=== PATIENT | female | born 1965 | race Caucasian/White ===

== ENCOUNTER → 2018-11-27 | Outpatient (CLI) | payer OTHER ==
[~2018-11-27] MED LIST: Flagyl500 MG PO; HYDACE5325 PO; SULTRIDS PO; Zofran Odt4 MG SL
[2018-11-28 14:08] LABS: HPV 16 Negative (Negative); HPV 18 Negative (Negative); HPV OTHER HR TYPES Negative (Negative)
== END | disposition home or self-care (01) ==
LOC: LAB 12:42 → LAB SHORT 12:42
PROVIDERS: Nurse Practitioner Women's Health
DX: Z12.4 Encounter for screening for malignant neoplasm of cervix (principal); Z91.89 Other specified personal risk factors, not elsewhere classified
CPT/HCPCS: 87624; G0123

== ENCOUNTER 2019-04-03 08:59 | Day surgery (SDC) | payer OTHER ==
[~2019-04-03] VITALS: Ht 165.1 cm; Wt 68.0 kg
[~2019-04-03 08:59] MED LIST changes: +ACYC200 PO; +AMLO10 PO; +ASPI81CH PO; +ATOR20 PO; +BUPR150ER PO; +CLOP75 PO; +ESTROGEN PATCH; +LEVFLO500 PO; +LISI5 PO; +METO25ER PO; +PROG100 PO; +Prilosec Otc20 MG PO; +Vitamin D2000 UNIT PO
[2019-04-03] MEDS ORDERED: PANT40 PO (10:12)
[2019-04-03] MEDS ORDERED: Nicoderm Cq1 EAC1 TOP (10:13)
--- NOTE | 2019-04-03 11:19 | NUR ---
PT AND S/O VERBALIZES UNDERSTANDING WRITTEN AND VERBAL ORDERS. VSS. NADN PT IV DC'D, CATH INTACT. PRESSURE DSG IN PLACE. PT DC TO HOME VIA S/O BY WC
== END 2019-04-03 22:54 | disposition home or self-care (01) ==
LOC: MHTC 08:59
DX: I08.3 Combined rheumatic disorders of mitral, aortic and tricuspid valves (principal); I10 Essential (primary) hypertension; F41.9 Anxiety disorder, unspecified; F32.9 Major depressive disorder, single episode, unspecified; E78.5 Hyperlipidemia, unspecified; E66.9 Obesity, unspecified; Z88.5 Allergy status to narcotic agent; Z68.24 Body mass index [BMI] 24.0-24.9, adult
CPT/HCPCS: 93312; 93325; 99152; J2250; J3010; J7030; J7040

== ENCOUNTER 2020-10-31 09:52 | Inpatient (IN) | payer SELFPAY ==
[~2020-10-31] VITALS: Ht 149.9 cm; Wt 69.7 kg
[~2020-10-31 09:52] MED LIST changes: +Nicoderm Cq1 EAC1 TOP; +PANT40 PO
[2020-10-31 10:17] LABS: BASOPHILS ABSOLUTE AUTO 0.11 K/mm3 (0.00-0.23); BASOPHILS PERCENT AUTO 1 % (0-2); EOSINOPHILS ABSOLUTE AUTO 0.55 K/mm3 (0.00-0.68); EOSINOPHILS PERCENT AUTO 4 % (0-6); Hematocrit 45.8 % (33.0-51.0); Hemoglobin 15.6 g/dL (11.5-16.0); IMMATURE GRAN ABSOLUTE AUTO 0.06 K/mm3 (0.00-0.10); IMMATURE GRAN PERCENT AUTO 0 % (0-1); LYMPHOCYTES ABSOLUTE AUTO 3.74 K/mm3 (0.84-5.20); LYMPHOCYTES PERCENT AUTO 28 % (21-46); MONOCYTES ABSOLUTE AUTO 1.23 K/mm3 (0.16-1.47); MONOCYTES PERCENT AUTO 9 % (4-13); Mean Corpuscular HGB 33.8 pg (26.0-34.0); Mean Corpuscular HGB Conc 34.1 g/dL (31.5-36.5); Mean Corpuscular Volume 99 fL (80-100); Mean Platelet Volume 9.1 fL (9.1-12.4); NEUTROPHILS ABSOLUTE AUTO 7.75 K/mm3 (1.96-9.15); NEUTROPHILS PERCENT AUTO 58 % (41-73); Platelet Count 261 K/mm3 (150-400); RDW Standard Deviation 47.9 fL (35.1-46.3); Red Blood Cell Count 4.61 M/mm3 (3.80-5.20); White Blood Cell Count 13.44 K/mm3 (4.00-11.30)
[2020-10-31 10:44] LABS: Alanine Aminotransfer (ALT/SGP 55 U/L (12-78); Albumin, Blood 3.7 g/dL (3.4-5.0); Albumin/Globulin Ratio 0.9 (0.8-1.8); Alk Phos 104 U/L (50-136); Anion Gap 9 mmol/L (6-16); Aspartate Aminotrans (AST/SGOT 60 U/L (12-37); Bilirubin, Total 0.7 mg/dL (0.1-1.0); Blood Urea Nitrogen 12 mg/dL (8-24); Bun/Creatinine Ratio 18.6 (12.0-20.0); CO2, Blood 19 mmol/L (21-32); Calcium, Blood 9.5 mg/dL (8.5-10.1); Chloride, Blood 107 mmol/L (98-108); Creatinine, Blood 0.65 mg/dL (0.40-1.00); Globulin, Blood 4.2 g/dL (2.2-4.0); Glomerular Filtration Rate >60 (60-); Glucose, Blood 104 mg/dL (70-99); Potassium, Blood 4.1 mmol/L (3.5-5.5); Sodium, Blood 135 mmol/L (136-145); Total Protein, Blood 7.9 g/dL (6.4-8.2)
[2020-10-31 12:53] LABS: International Normalized Ratio 0.95; Prothrombin Time Results 10.2 Sec (9.7-11.5)
--- NOTE | 2020-10-31 13:30 | NUR ---
ASSUMED CARE FROM [facility]LET[facility] RECEIVED REPORT FROM [facility] [employer]. [employer] [facility]LET[facility] [employer] BEGAN ADMISSION SCREENING AND HISTORY AND I ASSUMED CARE FROM HER. PT WAS CHATTING WITH STAFF AND SPOUSE WHEN I ARRIVED TO THE ROOM. PT WAS ABLE TO MOVE TO THE BATHROOM INDEPENDENTLY. BP WAS HIGH ON ADMISSION, LISINOPRIL WAS INITIALLY ORDERED TO HELP BUT PT REPORTS HAVING A VERY DRY COUGH FROM IT IN THE PAST, LOSARTAN WAS PRESCRIBED INSTEAD ALONG WITH OTHER ANTIHYPERTENSIVE MEDICATIONS. PT WAS STARTED ON HEPARIN DRIP VERIFIED WITH KELI GHOTRA. AN ADDITIONAL IV WAS STARTED ON THE LEFT FOREARM, 20G. UPON ARRIVAL TO THE UNIT THE PT'S TELE WAS CONFIRMED AND READ NSR. PT IS RESTING AT THIS TIME
[2020-10-31 16:23] LABS: Source, Urine Clean Catch
[2020-10-31 16:32] LABS: Appearance, Urine Hazy (Clear); Blood, Urine 2+ (Neg); Color, Urine Amber (P-Yellow); Glucose Qualitative, Urine Neg (Neg); Ketones, Urine 2+ (Neg); Leukocyte Esterase, Urine 2+ (Neg); Nitrite, Urine Pos (Neg); Protein, Urine 2+ (Neg); Specific Gravity, Urine 1.025 (1.003-1.022); Urobilinogen, Urine 2+ (Normal)
[2020-10-31 16:45] LABS: Bilirubin, Urine 1+ (Neg)
[2020-10-31 16:46] LABS: Bacteria Many /hpf; Squamous Epithelial Cells Few /hpf (Few)
[2020-10-31 16:48] LABS: U Amphetamine Screen Not Detected; U Cannabinoids Screen DETECTED; U Methamphetamine Screen Not Detected; U Opiates Screen DETECTED
[2020-10-31 16:49] LABS: U Barbituate Screen Not Detected; U Benzodiazapine Screen Not Detected; U Buprenorphine Screen Not Detected; U Cocaine Screen Not Detected; U Methadone Screen Not Detected; U Oxycodone Screen Not Detected; U Phencyclidine Screen Not Detected; U Propoxyphene Screen Not Detected
--- NOTE | 2020-10-31 17:45 | NUR ---
SHIFT SUMMARY PT ARRIVED TO THE UNIT AT APPROXIMATELY 1300. PT HAS BEEN ADMITED WITH CHEST PAIN AND HYPERTENSION RESULTING IN AN NSTEMI. PT'S BP HAS BEEN HIGH SINCE ARRIVING TO THE UNIT AND SEVERAL MEDICATIONS HAVE BEEN ADMINISTERED TO CONTROL THAT; HER LAST BP WAS 149/81. PT HAD SOME NAUSEA THIS AFTERNOON BUT REFUSED THE ZOFRAN. PT HAS ALSO HAD A HEADACHE WHICH HAS BEEN MINIMIZED WITH TYLENOL. PT'S AFTERNOON TROPONIN LEVEL WAS INCREASED A CRITICAL VALUE NOTIFICATION WAS MADE TO DR. HOPPER. PT IS ON A HEPARIN GTT AND HAS TWO IV'S. PT HAS HER SPOUSE AT BEDSIDE AND IS RESTING AND VISITING ON THE PHONE WITH FAMILY.
[2020-11-01 05:13] LABS: BASOPHILS ABSOLUTE AUTO 0.09 K/mm3 (0.00-0.23); BASOPHILS PERCENT AUTO 1 % (0-2); EOSINOPHILS ABSOLUTE AUTO 0.68 K/mm3 (0.00-0.68); EOSINOPHILS PERCENT AUTO 8 % (0-6); Hematocrit 44.6 % (33.0-51.0); Hemoglobin 14.9 g/dL (11.5-16.0); IMMATURE GRAN ABSOLUTE AUTO 0.04 K/mm3 (0.00-0.10); IMMATURE GRAN PERCENT AUTO 1 % (0-1); LYMPHOCYTES ABSOLUTE AUTO 1.08 K/mm3 (0.84-5.20); LYMPHOCYTES PERCENT AUTO 13 % (21-46); MONOCYTES ABSOLUTE AUTO 0.61 K/mm3 (0.16-1.47); MONOCYTES PERCENT AUTO 7 % (4-13); Mean Corpuscular HGB 33.9 pg (26.0-34.0); Mean Corpuscular HGB Conc 33.4 g/dL (31.5-36.5); Mean Corpuscular Volume 102 fL (80-100); Mean Platelet Volume 9.1 fL (9.1-12.4); NEUTROPHILS ABSOLUTE AUTO 5.94 K/mm3 (1.96-9.15); NEUTROPHILS PERCENT AUTO 70 % (41-73); Platelet Count 217 K/mm3 (150-400); RDW Coefficient Variation 13.2 % (11.7-14.2); RDW Standard Deviation 50.3 fL (35.1-46.3); Red Blood Cell Count 4.39 M/mm3 (3.80-5.20); White Blood Cell Count 8.44 K/mm3 (4.00-11.30)
[2020-11-01 05:45] LABS: Alanine Aminotransfer (ALT/SGP 135 U/L (12-78); Albumin, Blood 3.5 g/dL (3.4-5.0); Albumin/Globulin Ratio 0.8 (0.8-1.8); Alk Phos 118 U/L (50-136); Anion Gap 6 mmol/L (6-16); Aspartate Aminotrans (AST/SGOT 170 U/L (12-37); Bilirubin, Total 1.5 mg/dL (0.1-1.0); Blood Urea Nitrogen 10 mg/dL (8-24); Bun/Creatinine Ratio 13.4 (12.0-20.0); CHOL/HDL RATIO 3.6; CO2, Blood 26 mmol/L (21-32); Calcium, Blood 9.1 mg/dL (8.5-10.1); Chloride, Blood 105 mmol/L (98-108); Cholesterol 185 mg/dL (50-200); Creatinine, Blood 0.75 mg/dL (0.40-1.00); Globulin, Blood 4.4 g/dL (2.2-4.0); Glomerular Filtration Rate >60 (60-); Glucose, Blood 106 mg/dL (70-99); HDL Cholesterol 52 mg/dL (>39); Low Density Lipoprotein Chol 102 mg/dL (0-110); Sodium, Blood 137 mmol/L (136-145); Total Protein, Blood 7.9 g/dL (6.4-8.2); Triglycerides 153 mg/dL (30-160); Very Low Density Lipoprot Chol 30 mg/dL (6-32)
--- NOTE | 2020-11-01 06:32 | NUR ---
SHIFT SUMMARY ABIGAIL IS ALERT AND ORIENTED X4. CALLING APPROPRIATLY AND COOPERATIVE WITH CARE. SHE IS ON TELE, SINUS KOMAL WITH HR 50-60's. LUNGS ARE CLEAR ON ROOM AIR. HEPARIN GTT CURRENTLY INFUSING AT 16 U/KG/HR. NITRO PATCH APPLIED TO R UPPER CHEST. VITALS STABLE WITH SLIGHTLY ELEVATED BP, TRENDING DOWN FROM ADMIT COMPLAINED OF HEADACHE LAST NIGHT, MEDICATED VIA EMAR. PT REFUSED ICE. SLEPT MOST OF THE NIGHT, WAKING FOR CARES. TROPONIN TRENDING DOWN. BED REMAINED LOW, LOCKED AND CALL LIGHT IN REACH. WILL CONTINUE TO MONITOR.
--- NOTE | 2020-11-01 07:15 | NUR ---
ASSUMED CARE: PT AMBULATORY IN ROOM, NSR ON TELE. DENIES CP. HEPARIN GTT IN PLACE. NPO UNTIL CARDIOLOGY STATES ANGIO NOT NEEDED. STATES HEADACHE, NITRO PASTE IN PLACE. DENIES FURTHER NEEDS.
--- NOTE | 2020-11-01 09:19 | NUR ---
CALL TO DR ALCALA TO DETERMINE IF PT NEEDED TO REMAIN NPO. STATES NO CATH TODAY SO NPO NOT NECESSARY. STATES SHE WILL COME SEE PT LATER TODAY AND DETERMINE IF NITRO PASTE IS STILL NECESSARY. DR HANEY AWARE OF CARDIOLOGY'S PLAN. PT EATING BREAKFAST AT THIS TIME AND AWAITING ECHO.
--- NOTE | 2020-11-01 11:51 | NUR ---
DR ALCALA ORDERED STRESS TEST FOR PT. IMAGING CALLED TO COORDINATE. PT PLACED ON NPO AND CNAS AWARE. DISCUSSED WITH PT PLAN FOR STRESS TEST AND DISCUSSED PROCESS WITH HER. TRAY HELD FOR AFTER TEST. DENIES CHEST PAIN. NO FURTHER NEEDS OR CONCERNS AT THIS TIME.
--- NOTE | 2020-11-01 12:13 | NUR ---
CALL TO IMAGING FOR INSTRUCTIONS REGARDING PT'S NITRO PASTE. INSTRUCTED TO REMOVE CURRENT PASTE AND TO NOT APPLY FURTHER. PT HAS BEEN INSTRUCTED TO THIS AND SIGN PLACED OUTSIDE OF DOOR.
--- NOTE | 2020-11-01 13:05 | NUR ---
Echocardiogram completed.
--- NOTE | 2020-11-01 13:56 | NUR ---
[facility] CAME TO DO INJECTION PORTION OF STRESS TEST. PT EATING TRAY NOW. TRANSPORT WILL COLLECT PT IN APPROXIMATELY 30 MINUTES.
--- NOTE | 2020-11-01 14:36 | NUR ---
PT TAKEN TO [facility] BY STAFF VIA WHEEL CHAIR AT THIS TIME.
--- NOTE | 2020-11-01 18:51 | NUR ---
SHIFT SUMMARY: PART 1 OF STRESS TEST COMPLETED TODAY. PART 2 TO BE DONE TOMORROW WITH PT NPO AFTER BREAKFAST. HEPARIN GTT IN PLACE, WITH ADJUSTMENT FOR PTT DONE X1 THIS SHIFT. DENIES CP THIS SHIFT WITH TELE SHOWING NSR. NITRO PASTE OFF WITH SIGN OUTSIDE OF DOOR. NO ACUTE NEEDS OR CONCERNS. INDEPENDENT AND AMBULATORY IN HALLS
--- NOTE | 2020-11-02 00:52 | NUR ---
ELEVATED BP AT 0000 VITALS, PTS BP ELEVATED 201/82. MEDICATED PER EMAR PRN HYDRALAZINE. BP ONE HOUR LATER 158/66. WILL CONTINUE TO MONITOR. PATIENT DENIES CHEST PAIN, DIZZINESS AND HEADACHE. PATIENT STATED "I WAS SLEEPING AND DONT FEEL LIKE I HAVE A HIGH BLOOD PRESSURE".
[2020-11-02 04:16] LABS: BASOPHILS ABSOLUTE AUTO 0.08 K/mm3 (0.00-0.23); BASOPHILS PERCENT AUTO 1 % (0-2); EOSINOPHILS ABSOLUTE AUTO 0.73 K/mm3 (0.00-0.68); EOSINOPHILS PERCENT AUTO 7 % (0-6); Hematocrit 46.3 % (33.0-51.0); Hemoglobin 15.7 g/dL (11.5-16.0); IMMATURE GRAN ABSOLUTE AUTO 0.04 K/mm3 (0.00-0.10); IMMATURE GRAN PERCENT AUTO 0 % (0-1); LYMPHOCYTES ABSOLUTE AUTO 2.64 K/mm3 (0.84-5.20); LYMPHOCYTES PERCENT AUTO 26 % (21-46); MONOCYTES ABSOLUTE AUTO 0.92 K/mm3 (0.16-1.47); MONOCYTES PERCENT AUTO 9 % (4-13); Mean Corpuscular HGB 33.4 pg (26.0-34.0); Mean Corpuscular HGB Conc 33.9 g/dL (31.5-36.5); Mean Corpuscular Volume 99 fL (80-100); Mean Platelet Volume 9.7 fL (9.1-12.4); NEUTROPHILS ABSOLUTE AUTO 5.81 K/mm3 (1.96-9.15); NEUTROPHILS PERCENT AUTO 57 % (41-73); Platelet Count 213 K/mm3 (150-400); RDW Coefficient Variation 13.1 % (11.7-14.2); RDW Standard Deviation 47.5 fL (35.1-46.3); White Blood Cell Count 10.22 K/mm3 (4.00-11.30)
[2020-11-02 04:42] LABS: Alanine Aminotransfer (ALT/SGP 140 U/L (12-78); Albumin, Blood 3.8 g/dL (3.4-5.0); Albumin/Globulin Ratio 0.9 (0.8-1.8); Alk Phos 125 U/L (50-136); Anion Gap 5 mmol/L (6-16); Aspartate Aminotrans (AST/SGOT 133 U/L (12-37); Bilirubin, Total 1.2 mg/dL (0.1-1.0); Blood Urea Nitrogen 11 mg/dL (8-24); Bun/Creatinine Ratio 17.9 (12.0-20.0); CO2, Blood 24 mmol/L (21-32); Calcium, Blood 9.5 mg/dL (8.5-10.1); Chloride, Blood 107 mmol/L (98-108); Creatinine, Blood 0.61 mg/dL (0.40-1.00); Globulin, Blood 4.4 g/dL (2.2-4.0); Glomerular Filtration Rate >60 (60-); Glucose, Blood 97 mg/dL (70-99); Potassium, Blood 3.7 mmol/L (3.5-5.5); Sodium, Blood 136 mmol/L (136-145); Total Protein, Blood 8.2 g/dL (6.4-8.2)
--- NOTE | 2020-11-02 07:17 | NUR ---
SHIFT SUMMARY ABIGAIL IS ALERT AND ORIENTED X4. SHE IS ON ROOM AIR. ON TELE, SINUS RHYTHM WITH HR IN THE 60'S. INDEPENDENT IN ROOM, ABLE TO GET UP AND USE BATHROOM AND MOVE FREELY IN BED. HEPARIN INFUSIN IN RIGHT HAND, ADJUSTED THIS SHIFT PER PHARMACY. SHE DENIES CHEST PAIN, NUMBNESS AND TINGLING. ELEVATED BP THIS SHIFT MEDICATED PER EMAR WITH PRN Q4 HYDRALAZINE. DECREASED BP WITH INITAL DOSE OF HYDRALAZINE, SECOND DOSE BP WAS STILL ELEVATED. DR. FONSECA NOTIFIED AND ADDITIONAL DOSE OF HYDRALAZINE ORDERED WITH GOOD RELIEF. PLAN IS TO BE NPO AFTER BREAKFAST TODAY WITH NO CAFF FOR STRESS TEST. PATIENT ANXIOUS TO GET HOME. BE REMAINED LOW, LOCKED AND CALL LIGHT IN REACH. PATIENT SLEPT MOST OF THE NIGHT WAKING FOR CARES.
--- NOTE | 2020-11-02 11:47 | NUR ---
TAKEN TO [facility]OM[facility]S [employer] COACH FOR STRESS TEST VIA WHEELCHAIR AT THIS TIME.
--- NOTE | 2020-11-02 16:39 | NUR ---
SHIFT SUMMARY; A/A/OX4 THROUGHOUT SHIFT. INDEPENDANT IN ROOM. PART TWO OF 2 DAY STRESS TEST COMPLETE TODAY. DENIES CHEST PAIN DURING SHIFT. HYPERTENSIVE DURING SHIFT, ADDITIONAL MEDS ORDERED TODAY BY DR. HANEY. MEDICATED PER ORDERS. BOYFRIEND AT BEDSIDE IN AFTERNOON. PLEASANT AND COOPERATIVE WITH CARE. WILL CONTINUE TO MONITOR AND TREAT UNTIL CHANGE OF SHIFT.
--- NOTE | 2020-11-02 19:11 | NUR ---
HEPARIN DC'D PER ORDERS.
[2020-11-03 04:16] LABS: BASOPHILS ABSOLUTE AUTO 0.09 K/mm3 (0.00-0.23); BASOPHILS PERCENT AUTO 1 % (0-2); EOSINOPHILS ABSOLUTE AUTO 0.53 K/mm3 (0.00-0.68); EOSINOPHILS PERCENT AUTO 5 % (0-6); Hematocrit 42.6 % (33.0-51.0); Hemoglobin 14.2 g/dL (11.5-16.0); IMMATURE GRAN ABSOLUTE AUTO 0.04 K/mm3 (0.00-0.10); IMMATURE GRAN PERCENT AUTO 0 % (0-1); LYMPHOCYTES ABSOLUTE AUTO 2.45 K/mm3 (0.84-5.20); LYMPHOCYTES PERCENT AUTO 25 % (21-46); MONOCYTES ABSOLUTE AUTO 1.27 K/mm3 (0.16-1.47); MONOCYTES PERCENT AUTO 13 % (4-13); Mean Corpuscular HGB 33.2 pg (26.0-34.0); Mean Corpuscular HGB Conc 33.3 g/dL (31.5-36.5); Mean Corpuscular Volume 100 fL (80-100); Mean Platelet Volume 9.5 fL (9.1-12.4); NEUTROPHILS ABSOLUTE AUTO 5.48 K/mm3 (1.96-9.15); NEUTROPHILS PERCENT AUTO 56 % (41-73); Platelet Count 219 K/mm3 (150-400); RDW Coefficient Variation 13.2 % (11.7-14.2); RDW Standard Deviation 48.4 fL (35.1-46.3); Red Blood Cell Count 4.28 M/mm3 (3.80-5.20); White Blood Cell Count 9.86 K/mm3 (4.00-11.30)
[2020-11-03 04:40] LABS: Alanine Aminotransfer (ALT/SGP 126 U/L (12-78); Albumin, Blood 3.4 g/dL (3.4-5.0); Albumin/Globulin Ratio 0.8 (0.8-1.8); Alk Phos 103 U/L (50-136); Anion Gap 5 mmol/L (6-16); Aspartate Aminotrans (AST/SGOT 101 U/L (12-37); Bilirubin, Total 0.8 mg/dL (0.1-1.0); Blood Urea Nitrogen 18 mg/dL (8-24); Bun/Creatinine Ratio 24.6 (12.0-20.0); CO2, Blood 25 mmol/L (21-32); Calcium, Blood 9.5 mg/dL (8.5-10.1); Chloride, Blood 106 mmol/L (98-108); Creatinine, Blood 0.73 mg/dL (0.40-1.00); Globulin, Blood 4.3 g/dL (2.2-4.0); Glomerular Filtration Rate >60 (60-); Glucose, Blood 100 mg/dL (70-99); Potassium, Blood 4.1 mmol/L (3.5-5.5); Sodium, Blood 136 mmol/L (136-145); Total Protein, Blood 7.7 g/dL (6.4-8.2)
--- NOTE | 2020-11-03 05:29 | NUR ---
SHIFT SUMMARY: ABIGAIL IS ALERT AND ORIENTED X4. INDEPENDENT IN THE ROOM AND WAS ABLE TO TAKE A WALK AROUND THE UNIT THIS AM. PATIENT STATES SHE IS FEELING GREAT AND EXCITED TO GO HOME. DENIES CHEST PAIN. ON TELE - SINUS KOMAL HR AVERAGING 50-60's. ONE EPISODE OF HR IN LOW 40'S, PATIENT WAS ASLEEP. VITAL SIGNS STABLE WITH NO ACUTE CHANGES. SELPT MOST OF THE SHIFT, WAKING FOR CARES. BED REMAINED LOCKED, IN LOW POSITION AND CALL LIGHT IN REACH.
[2020-11-03] MEDS ORDERED: AMLO5 PO (09:29)
[2020-11-03] MEDS ORDERED: ASPI81CH PO (09:55)
[2020-11-03] MEDS ORDERED: ATORVASTATIN CA40 MG PO (09:57)
[2020-11-03] MEDS ORDERED: CLON.1 PO (09:57)
[2020-11-03] MEDS ORDERED: LOSA50 PO (09:57)
[2020-11-03] MEDS ORDERED: CIPR500 PO (09:57)
[2020-11-03] MEDS ORDERED: METO25ER PO (09:58)
[2020-11-03] MEDS ORDERED: Nicoderm Cq1 EAC1 TOP (09:58)
--- NOTE | 2020-11-03 11:15 | NUR ---
DISCHARGE SUMMARY PT A&Ox4; CALM AND COOPERATIVE WITH CARE. PT RESTING IN BED THIS AM; UP IND IN HALLS WALKING. PT AME PAIN, SOB, NASUEA, DIZZINESS AND LIGHTHEADEDNESS. HR 50'S; NOTIFIED DR HANEY, HOLD METOPROLOL. OTHER VSS. NO OTHER ACUTE CHANGES. EDUCATED PT ON DISCHARGE INSTRUCTIONS, FOLLOW UP APPOINTMENT AND MEDCATIONS. PRESCRIPTION FAXED TO [facility] PER PT REQUEST. PT LEFT ROOM VIA WHEELCHAIR AT 1026; PT STABLE UPON DISCHARGE.
== END 2020-11-03 10:26 | disposition home or self-care (01) | DRG 282 ==
LOC: ER 09:52 → PCU 12:01
PROVIDERS: Internal Medicine; Nurse Practitioner Acute Care; Pharmacist; Physician Assistant; ADMIT Internal Medicine
DX: I21.4 Non-ST elevation (NSTEMI) myocardial infarction (principal); I10 Essential (primary) hypertension; I35.1 Nonrheumatic aortic (valve) insufficiency; F17.210 Nicotine dependence, cigarettes, uncomplicated; K21.9 Gastro-esophageal reflux disease without esophagitis; E78.2 Mixed hyperlipidemia; H40.9 Unspecified glaucoma
CPT/HCPCS: 36415; 71046; 78452; 80053; 80061; 81001; 83036; 83735; 83880; 84443; 84484; 85025; 85610; 85651; 85730; 86140; 87077; 87086; 87186; 93005; 93010; 93017; 93306; 96374; 96375; 99285-25; A9270; A9270-GY; A9500; J0706; J1644; J2270; J2405; J2785

== ENCOUNTER 2023-06-29 12:18 | Emergency (ER) | payer OTHER ==
[~2023-06-29] VITALS: Ht 152.4 cm; Wt 59.0 kg
[~2023-06-29 12:18] MED LIST changes: +AMLO5 PO; +ATORVASTATIN CA40 MG PO; +CIPR500 PO; +CLON.1 PO; +Cleocin HCl150 MG PO; +LOSA50 PO
[2023-06-29 12:24] VITALS: BP 199/73
[2023-06-29] MEDS ORDERED: MONDOXYNE NL100 MG PO (12:26)
== END 2023-06-29 12:27 | disposition home or self-care (01) ==
LOC: ER 12:18
DX: S61.452A Open bite of left hand, initial encounter (principal); S61.052A Open bite of left thumb without damage to nail, initial encounter; W55.01XA Bitten by cat, initial encounter; Z88.5 Allergy status to narcotic agent; Z88.8 Allergy status to other drugs, medicaments and biological substances; Z88.0 Allergy status to penicillin; Z91.018 Allergy to other foods; Z79.899 Other long term (current) drug therapy; Z79.82 Long term (current) use of aspirin; I10 Essential (primary) hypertension; E78.5 Hyperlipidemia, unspecified; I25.2 Old myocardial infarction; F17.210 Nicotine dependence, cigarettes, uncomplicated
CPT/HCPCS: 99282